=== PATIENT | female | born 1950 | race Caucasian/White ===

== ENCOUNTER 2021-11-28 15:20 | Emergency (ER) | payer MEDICARE, OTHER ==
[2021-11-28 16:39] LABS: HEMOGLOBIN 12.3 gm/dl (12.3-15.3); RED BLOOD COUNT 3.98 M/UL (4.00-5.10); WHITE BLOOD COUNT 4.6 K/UL (4.5-11.0)
[2021-11-28] MEDS ORDERED: ONDANSETRON ODT4 MG SL (17:50)
== END 2021-11-28 19:02 | disposition home or self-care (01) ==
LOC: ER1 15:20
PROVIDERS: Physician Assistant
DX: U07.1 COVID-19 (principal); I25.2 Old myocardial infarction; E87.6 Hypokalemia; E78.5 Hyperlipidemia, unspecified; I10 Essential (primary) hypertension; Z95.5 Presence of coronary angioplasty implant and graft
CPT/HCPCS: 71045; 80053; 81001; 83690; 85025; 96374; 99284; J2405

== ENCOUNTER → 2022-04-16 | Outpatient (CLI) | payer MEDICARE, OTHER ==
[~2022-04-16] MED LIST: ONDANSETRON ODT4 MG SL
== END ==
LOC: EXRD 08:00
DX: I10 Essential (primary) hypertension (principal)
CPT/HCPCS: 93975

== ENCOUNTER → 2022-06-12 | Outpatient (CLI) | payer MEDICARE, OTHER | LOC: KOH-I 11:09 | DX: R10.31 Right lower quadrant pain (principal) | CPT/HCPCS: 74176 ==

== ENCOUNTER → 2022-07-29 | Outpatient (CLI) | payer MEDICARE, OTHER | LOC: CT 07-24 08:00 | DX: R91.1 Solitary pulmonary nodule (principal); N28.9 Disorder of kidney and ureter, unspecified; Z01.810 Encounter for preprocedural cardiovascular examination; R00.1 Bradycardia, unspecified; I44.7 Left bundle-branch block, unspecified; R94.31 Abnormal electrocardiogram [ECG] [EKG] | CPT/HCPCS: 36415; 71250; 74170; 82565; 84520; 93005; Q9967 ==